=== PATIENT | female | born 1960 | race African-American/Black ===

== ENCOUNTER 2020-02-20 08:47 | Outpatient (REF) | payer OTHER, SELFPAY ==
--- NOTE | 2020-02-20 10:28 | XR_ITS ---
EXAMINATION: XR HIP, BILATERAL XR HAND, BILATERAL CLINICAL INFORMATION: Pain. COMPARISON: None TECHNIQUE: 2 views each hip and 3 views each hand. FINDINGS: LEFT HIP: There is no visible fracture, dislocation, bony erosive changes or loose bodies. The soft tissues are normal. RIGHT HIP: There is no visible acute fracture, dislocation or subluxation. There is a small avulsion bony fragment lateral tip of acetabulum likely old injury. Otherwise, the soft tissues are normal. There are phleboliths in the pelvis. LEFT HAND: There is no visible acute fracture, dislocation or subluxation. There are small erosive changes along the DIP joints 2nd and 3rd digits and PIP joint 2nd digit. RIGHT HAND: There is no visible acute fracture, dislocation or subluxation. There is mild loss of PIP and DIP joint space with bony erosive changes DIP joint 2nd and 3rd digit and PIP joint 1st digit. The soft tissues are normal. XR/XR hand LT min 3V IMPRESSION: Erosive arthritic changes PIP and DIP joints both hands as described above. No acute fracture, subluxation or deformity. Both hip joints are unremarkable.
--- NOTE | 2020-02-20 10:28 | XR_ITS ---
EXAMINATION: XR HIP, BILATERAL XR HAND, BILATERAL CLINICAL INFORMATION: Pain. COMPARISON: None TECHNIQUE: 2 views each hip and 3 views each hand. FINDINGS: LEFT HIP: There is no visible fracture, dislocation, bony erosive changes or loose bodies. The soft tissues are normal. RIGHT HIP: There is no visible acute fracture, dislocation or subluxation. There is a small avulsion bony fragment lateral tip of acetabulum likely old injury. Otherwise, the soft tissues are normal. There are phleboliths in the pelvis. LEFT HAND: There is no visible acute fracture, dislocation or subluxation. There are small erosive changes along the DIP joints 2nd and 3rd digits and PIP joint 2nd digit. RIGHT HAND: There is no visible acute fracture, dislocation or subluxation. There is mild loss of PIP and DIP joint space with bony erosive changes DIP joint 2nd and 3rd digit and PIP joint 1st digit. The soft tissues are normal. XR/XR hand RT min 3V IMPRESSION: Erosive arthritic changes PIP and DIP joints both hands as described above. No acute fracture, subluxation or deformity. Both hip joints are unremarkable.
--- NOTE | 2020-02-20 10:28 | XR_ITS ---
EXAMINATION: XR HIP, BILATERAL XR HAND, BILATERAL CLINICAL INFORMATION: Pain. COMPARISON: None TECHNIQUE: 2 views each hip and 3 views each hand. FINDINGS: LEFT HIP: There is no visible fracture, dislocation, bony erosive changes or loose bodies. The soft tissues are normal. RIGHT HIP: There is no visible acute fracture, dislocation or subluxation. There is a small avulsion bony fragment lateral tip of acetabulum likely old injury. Otherwise, the soft tissues are normal. There are phleboliths in the pelvis. LEFT HAND: There is no visible acute fracture, dislocation or subluxation. There are small erosive changes along the DIP joints 2nd and 3rd digits and PIP joint 2nd digit. RIGHT HAND: There is no visible acute fracture, dislocation or subluxation. There is mild loss of PIP and DIP joint space with bony erosive changes DIP joint 2nd and 3rd digit and PIP joint 1st digit. The soft tissues are normal. XR/XR hip LT min 2V IMPRESSION: Erosive arthritic changes PIP and DIP joints both hands as described above. No acute fracture, subluxation or deformity. Both hip joints are unremarkable.
--- NOTE | 2020-02-20 10:28 | XR_ITS ---
EXAMINATION: XR HIP, BILATERAL XR HAND, BILATERAL CLINICAL INFORMATION: Pain. COMPARISON: None TECHNIQUE: 2 views each hip and 3 views each hand. FINDINGS: LEFT HIP: There is no visible fracture, dislocation, bony erosive changes or loose bodies. The soft tissues are normal. RIGHT HIP: There is no visible acute fracture, dislocation or subluxation. There is a small avulsion bony fragment lateral tip of acetabulum likely old injury. Otherwise, the soft tissues are normal. There are phleboliths in the pelvis. LEFT HAND: There is no visible acute fracture, dislocation or subluxation. There are small erosive changes along the DIP joints 2nd and 3rd digits and PIP joint 2nd digit. RIGHT HAND: There is no visible acute fracture, dislocation or subluxation. There is mild loss of PIP and DIP joint space with bony erosive changes DIP joint 2nd and 3rd digit and PIP joint 1st digit. The soft tissues are normal. XR/XR hip RT min 2V IMPRESSION: Erosive arthritic changes PIP and DIP joints both hands as described above. No acute fracture, subluxation or deformity. Both hip joints are unremarkable.
[2020-02-20 10:34] LABS: MANUAL DIFF FLAG NO
[2020-02-20 10:46] LABS: Basophils Percent Auto 0.5 % (0-2); Eosinophils Absolute Auto 0.1 X10*3/uL (0.0-0.4); Eosinophils Percent Auto 0.8 % (0-4); Hematocrit 39.9 % (37-47); Hemoglobin 13.3 g/dl (12.0-16.0); Imm Gran Abs Auto 0.01 X10*3/uL (0.00-0.03); Imm Gran Pct Auto 0.2 % (0.0-0.4); Lymphocytes Absolute Auto 1.8 X10*3/uL (1.2-4.9); Lymphocytes Percent Auto 28.7 % (20-40); Mean Corpuscular HGB Conc 33.3 g/dl (31.0-35.0); Mean Corpuscular Hemoglobin 34.1 pg (27.0-33.0); Mean Corpuscular Volume 102.3 fL (80-98); Mean Platelet Volume 9.5 fL (9.4-12.3); Monocytes Absolute Auto 0.4 X10*3/uL (0.1-1.2); Neutrophils Percent Auto 62.8 % (45-73); Platelet Count 266 X10*3/uL (160-400); Red Cell Distribution Width 12.1 % (11.0-16.0); White Blood Count 6.3 X10*3/uL (4.8-10.8)
[2020-02-20 11:11] LABS: Alanine Aminotransferase 26 U/L (0-31); Albumin Level 4.4 g/dL (3.5-5.0); Alkaline Phosphatase 72 U/L (39-117); Anion Gap 15 (12-20); Aspartate Amino Transferase 25 U/L (5-31); Bilirubin Total 0.5 mg/dL (0.0-1.0); Blood Urea Nitrogen 12 mg/dL (9-16); C Reactive Protein 0.33 mg/dL (< or = 0.50); Calcium 9.4 mg/dL (8.4-10.2); Carbon Dioxide 29 mmol/L (22-29); Chloride 105 mmol/L (96-108); Estimated Glomerular Filt Rate > 60; Glucose Random 104 mg/dL (60-115); Potassium 4.6 mmol/l (3.3-5.1); Sodium 144 mmol/L (135-145); Total Protein 7.7 g/dL (6.5-8.0)
[2020-02-20 11:55] LABS: Erythrocyte Sedimentation Rate 16 MM/HR (0-20)
[2020-02-21 14:02] LABS: Antibody to SS-A Antigen <1.0 NEG AI (<1.0 NEG); Antibody to SS-B Antigen <1.0 NEG AI (<1.0 NEG)
[2020-02-22 23:27] LABS: Cyclic Citrullinated Peptide <16 UNITS
== END 2020-02-20 08:48 | disposition home or self-care (01) ==
LOC: HO.LAB 08:47
PROVIDERS: PCP Internal Medicine; Referring Provider Internal Medicine; Visit Provider Student in an Organized Health Care Education/Training Program
DX: M25.50 Pain in unspecified joint (principal); I73.00 Raynaud's syndrome without gangrene; F17.210 Nicotine dependence, cigarettes, uncomplicated; Z79.899 Other long term (current) drug therapy
CPT/HCPCS: 36415; 73130; 73502; 80053; 85025; 85652; 86140; 86200; 86235; 99202

== ENCOUNTER → 2020-05-07 12:50 | Outpatient (BNVA) | payer OTHER, SELFPAY | PROVIDERS: PCP Internal Medicine; Visit Provider Student in an Organized Health Care Education/Training Program | DX: M25.50 Pain in unspecified joint (principal); M15.4 Erosive (osteo)arthritis | CPT/HCPCS: 99212 ==

== ENCOUNTER 2020-11-12 10:43 | Outpatient (REF) | payer OTHER, SELFPAY ==
--- NOTE | ~2020-11-12 | MM_ITS ---
EXAMINATION: MM SCREENING DIGITAL BREAST TOMOSYNTHESIS, BILATERAL CLINICAL INFORMATION: Screening. Asymptomatic. The lifetime risk of breast cancer based on the Tyrer-Cuzick Model is 4%. COMPARISON: Outside mammography: 04/22/2015, 01/30/2013 ([facility]). TECHNIQUE: Digital breast tomosynthesis is performed in both the craniocaudal and mediolateral oblique views along with computer-aided detection (CAD). Synthesized 2D images are generated from the tomosynthesis. Additional left MLO and exaggerated left CC views are provided. FINDINGS: There are scattered areas of fibroglandular density (ACR BI-RADS breast composition Category b). Parenchymal pattern is similar to prior outside studies. Breast tissue composition borders on heterogeneously dense. There is no significant mass or architectural abnormality or developing density. No abnormal calcific. The axilla and skin contours are unremarkable. MM/MM tomosynthesis screening BI IMPRESSION: No mammographic evidence of malignancy. ASSESSMENT: BI-RADS 1: Negative RECOMMENDATION: Routine annual mammography screening. This patient's information was entered into a reminder system with a target due date for their next mammogram.
== END 2020-11-12 10:44 | disposition home or self-care (01) ==
LOC: HO.MAMMO 10:43
PROVIDERS: Visit Provider Internal Medicine
DX: Z12.31 Encounter for screening mammogram for malignant neoplasm of breast (principal)
CPT/HCPCS: 77063; 77067